=== PATIENT | male | born 2000 | race American Indian/Alaskan Native ===

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

== ENCOUNTER 2022-03-01 00:44 | Inpatient (IN) | payer MEDICAID ==
[2022-03-01] MEDS ORDERED: ZIPRASIDONE MESYLATE 20 MG VIAL IM ONE ×2 (01:10→01:11)
[2022-03-01] MEDS ORDERED: SODIUM CHLORIDE 0.9% 1000 ML 1,000 ML IV ONE ×2 (01:37→02:50)
[2022-03-01 02:05] LABS: Color,Urine Straw (Yellow)
[2022-03-01 02:07] LABS: BUN/Creatinine Ratio 21; Blood Urea Nitrogen 31 mg/dL (9-20); Calcium 9.4 mg/dL (8.4-10.2); Hemolysis Index 5
[2022-03-01 02:11] LABS: Amphetamine Screen,Urine PRESUMPTIVE NEGATIVE; Benzodiazepines Screen,Urine PRESUMPTIVE NEGATIVE; Cannabinoid Screen,Urine PRESUMPTIVE POSITIVE; Cocaine Screen,Urine PRESUMPTIVE NEGATIVE; Methadone Screen,Urine PRESUMPTIVE NEGATIVE; Opiate Screen,Urine PRESUMPTIVE NEGATIVE
[2022-03-01 02:47] LABS: Basophils # (Auto) 0.1 K/mm3 (0.0-0.1); Basophils % (Auto) 1.1 % (0.0-1.8); Eosinophils # (Auto) 0.3 K/mm3 (0.0-0.4); Eosinophils % (Auto) 4.7 % (0.0-4.3); Hematocrit 42.3 % (35.5-45.6); Hemoglobin 13.5 gm/dl (11.8-15.2); Lymphocytes % (Auto) 28.2 % (13.4-35.0); Mean Corpuscular HGB Conc 32 % (32-34); Mean Corpuscular Volume 92 fl (84-94); Monocytes # (Auto) 0.6 K/mm3 (0.0-0.8); Monocytes % (Auto) 8.3 % (0.0-7.3); Platelet Count 346 K/mm3 (140-440); Red Cell Distribution Width 14.5 % (13.2-15.2)
[2022-03-01] MEDS ORDERED: SODIUM POLYSTYRENE 15 GM/60 ML ORAL LIQD PO ONE (02:49)
[2022-03-01] MEDS ORDERED: DEXTROSE 50% IN WATER (25GM) 50 ML SYRINGE IV PRN ×2 (02:50→17:10)
[2022-03-01] MEDS ORDERED: INSULIN REGULAR, HUMAN 100 UNITS in SODIUM CHLORIDE 0.9% 99 ML IV SCH (03:00)
[2022-03-01] MEDS ORDERED: SODIUM POLYSTYRENE 15 GM/60 ML ORAL LIQD PR ONE (03:10)
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
[2022-03-01 03:49] LABS: BUN/Creatinine Ratio 24; Blood Urea Nitrogen 33 mg/dL (9-20); Calcium 8.1 mg/dL (8.4-10.2); Hemolysis Index 11
[2022-03-01] MEDS ORDERED: CALCIUM GLUCONATE 1,000 MG in SODIUM CHLORIDE 0.9% 100 ML IV ONE (03:49)
[2022-03-01] MEDS ORDERED: MAGNESIUM HYDROXIDE (MOM) ORAL LIQD UDC PO PRN (04:08)
[2022-03-01] MEDS ORDERED: MORPHINE 4 MG/1 ML INJ IV PRN (04:08)
[2022-03-01] MEDS ORDERED: IBUPROFEN 600 MG TAB PO PRN (04:08)
[2022-03-01] MEDS ORDERED: MORPHINE 2 MG/1 ML INJ IV PRN (04:08)
[2022-03-01] MEDS ORDERED: ONDANSETRON 4 MG/2 ML INJ IV PRN (04:08)
[2022-03-01] MEDS ORDERED: SODIUM CHLORIDE 0.9% 1000 ML 1,000 ML IV SCH (04:15)
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
[2022-03-01] MEDS ORDERED: D5W/0.45% NACL/KCL 20 MEQ 20 MEQ/1,000 ML BAG IV SCH (05:00)
[2022-03-01] MEDS ORDERED: HEPARIN 5,000 UNIT/1 ML VIAL SUB-Q SCH (06:00)
[2022-03-01] MEDS: SODIUM BICARB 8.4% 50 MEQ/50 ML SYRINGE IV ONE ×2 (06:12→06:54)
[2022-03-01 07:04] LABS: BUN/Creatinine Ratio 22; Blood Urea Nitrogen 31 mg/dL (9-20); Calcium 9.5 mg/dL (8.4-10.2); Hemolysis Index 48
[2022-03-01] MEDS ORDERED: LACTATED RINGERS 2,000 ML IV ONE (08:00)
[2022-03-01 08:20] LABS: BUN/Creatinine Ratio 22; Blood Urea Nitrogen 31 mg/dL (9-20); Calcium 9.5 mg/dL (8.4-10.2); Hemolysis Index 50
[2022-03-01] MEDS ORDERED: D5W/0.45% NACL 1,000 ML IV SCH (09:00)
[2022-03-01] MEDS ORDERED: FAMOTIDINE 20 MG/2 ML INJ IV SCH (10:00)
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
[2022-03-01] MEDS ORDERED: ZIPRASIDONE MESYLATE 20 MG VIAL IM PRN (12:17)
[2022-03-01 13:14] LABS: BUN/Creatinine Ratio 21; Blood Urea Nitrogen 23 mg/dL (9-20); Calcium 9.6 mg/dL (8.4-10.2); Hemolysis Index 3
[2022-03-01 20:34] LABS: BUN/Creatinine Ratio 16; Blood Urea Nitrogen 18 mg/dL (9-20); Hemolysis Index 4
[2022-03-01] MEDS ORDERED: INSULIN GLARGINE 100 UNITS/ML SUB-Q SCH (22:00)
[2022-03-01] MEDS: HEPARIN 5,000 UNIT/1 ML VIAL SUB-Q SCH (22:22)
[2022-03-01] MEDS: INSULIN LISPRO 100 UNIT/ML SUB-Q SCH (22:37)
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
[2022-03-02] MEDS ORDERED: SODIUM CHLORIDE 0.9% 1000 ML 1,000 ML IV ONE (08:00)
[2022-03-02] MEDS: INSULIN LISPRO 100 UNIT/ML SUB-Q SCH ×4 (08:05→22:15)
[2022-03-02] MEDS ORDERED: HUMALOG MIX SQ SCH (10:00)
[2022-03-02] MEDS: INSULIN NPH/REGULAR 70/30 INJ SUB-Q SCH ×3 (10:18→19:17)
[2022-03-02 10:58] LABS: Hemoglobin 12.6 gm/dl (11.8-15.2); Mean Corpuscular HGB Conc 32 % (32-34); Mean Corpuscular Volume 89 fl (84-94); Platelet Count 345 K/mm3 (140-440); Red Blood Count 4.37 M/mm3 (3.65-5.03)
[2022-03-02] MEDS: FAMOTIDINE 20 MG TAB PO SCH (11:08)
[2022-03-02 11:09] LABS: BUN/Creatinine Ratio 12; Blood Urea Nitrogen 13 mg/dL (9-20); Calcium 9.4 mg/dL (8.4-10.2); Hemolysis Index 11
[2022-03-02] MEDS: HEPARIN 5,000 UNIT/1 ML VIAL SUB-Q SCH ×3 (11:21→22:48)
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
[2022-03-02] MEDS ORDERED: SODIUM CHLORIDE 0.9% 1000 ML 1,000 ML ONE (12:32)
--- NOTE | 2022-03-02 13:46 | Progress Note ---
Subjective Date of service: 03/02/22 Objective Vital Signs - 12hr 03/02/22 03/02/22 06:01 11:53 Temperature 97.8 F 99.1 F Pulse Rate 90 89 Respiratory 18 18 Rate Blood Pressure 145/72 138/81 O2 Sat by Pulse 100 98 Oximetry Constitutional: no acute distress, alert Eyes: non-icteric ENT: oropharynx dry Neck: supple, no lymphadenopathy, no JVD Effort: normal Ascultation: Bilateral: clear Cardiovascular: regular rate and rhythm, other (S1,S2) Gastrointestinal: normoactive bowel sounds, soft, non-tender Integumentary: normal, other (Left Uext cole- looks like self-inflicted wounds) Extremities: no cyanosis, pink and warm, pulses normal Neurologic: normal mental status, non-focal exam Psychiatric: mood appropriate CBC and BMP: 03/02/22 10:19 03/02/22 10:19 Abnormal lab findings: Abnormal Labs 03/01/22 03/01/22 03/01/22 01:41 01:41 01:41 [place] % (Auto) Eos % (Auto) Sodium 127 L Potassium 7.6 H* Chloride 94.7 L Carbon Dioxide 20 L BUN 31 H Creatinine 1.5 H Glucose 690 H* POC Glucose Calcium Magnesium Salicylates < 0.3 L Acetaminophen 5.0 L 03/01/22 03/01/22 03/01/22 01:41 03:15 03:49 [place] % (Auto) 8.3 H Eos % (Auto) 4.7 H Sodium 125 L Potassium 8.3 H* Chloride 97.5 L Carbon Dioxide 18 L BUN 33 H Creatinine 1.4 H Glucose 771 H* POC Glucose 599 H Calcium 8.1 L Magnesium Salicylates Acetaminophen 03/01/22 03/01/22 03/01/22 04:43 05:40 05:40 [place] % (Auto) Eos % (Auto) Sodium 136 L D Potassium Chloride Carbon Dioxide 20 L BUN 31 H Creatinine 1.4 H Glucose 339 H POC Glucose 442 H Calcium Magnesium 2.40 H Salicylates Acetaminophen 03/01/22 03/01/22 03/01/22 05:41 06:28 07:13 [place] % (Auto) Eos % (Auto) Sodium Potassium Chloride Carbon Dioxide BUN 31 H Creatinine 1.4 H Glucose 352 H POC Glucose 353 H 253 H Calcium Magnesium Salicylates Acetaminophen 03/01/22 03/01/22 03/01/22 11:11 12:20 12:20 [place] % (Auto) Eos % (Auto) Sodium Potassium 5.3 H Chloride Carbon Dioxide BUN 23 H Creatinine Glucose 244 H POC Glucose 200 H 221 H Calcium Magnesium Salicylates Acetaminophen 03/01/22 03/01/22 03/01/22 13:28 14:44 15:52 [place] % (Auto) Eos % (Auto) Sodium Potassium Chloride Carbon Dioxide BUN Creatinine Glucose POC Glucose 186 H 121 H 106 H Calcium Magnesium Salicylates Acetaminophen 03/01/22 03/01/22 03/02/22 19:59 22:25 07:38 [place] % (Auto) Eos % (Auto) Sodium 133 L Potassium Chloride Carbon Dioxide BUN Creatinine Glucose 279 H POC Glucose 438 H 228 H Calcium Magnesium Salicylates Acetaminophen 03/02/22 10:19 [place] % (Auto) Eos % (Auto) Sodium 131 L Potassium Chloride 96.4 L Carbon Dioxide BUN Creatinine Glucose 258 H POC Glucose Calcium Magnesium Salicylates Acetaminophen
[2022-03-02] MEDS: FLUoxetine 10 MG TAB PO SCH (14:24)
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
[2022-03-03] MEDS: INSULIN NPH/REGULAR 70/30 INJ SUB-Q SCH ×2 (08:00→17:08)
[2022-03-03] MEDS: FLUoxetine 10 MG TAB PO SCH (09:07)
[2022-03-03] MEDS: FAMOTIDINE 20 MG TAB PO SCH (09:07)
[2022-03-03] MEDS: HEPARIN 5,000 UNIT/1 ML VIAL SUB-Q SCH (09:08)
[2022-03-03] MEDS: INSULIN LISPRO 100 UNIT/ML SUB-Q SCH ×3 (09:09→17:04)
--- NOTE | 2022-03-03 11:13 | Progress Note ---
Assessment and Plan Uncontrolled Type 1 Diabetes Mellitus with Hyperglycemia Metabolic Acidosis Acute Kidney Injury(MARIA FERNANDA) most likely Vasomotor Nephropathy Hyperkalemia- improved Acute Toxic Metabolic Acidosis Acute Psychosis Hypertension - discharge planning ongoimng concurrently - complete Psych evaluation - accuchecks with glycemic control per SSI for target blood glucose of < 180 mg/dL; avoid hypoglycemia - prn supplemental oxygen for target O2 sat's > 90% acutely - aspiration precautions - prn bronchodilators with pulmonary hygiene per RT - avoid nephrotoxins, renally dose all medications - AB's per ID rec's - prn analgesia per pain score - Maintenance of sleep-wake cycle, avoid delirium - G.I. & VTE prophylaxis - PT/OT/ROM exercises - continue mobility protocols for pressure ulcer prophylaxis - Monitor hemodynamics closely - continue other care per attending / other consultants - discharge planning ongoing concurrently .... Re-evaluate in am & prn Subjective Date of service: 03/03/22 Principal diagnosis: DM I uncontrolled; MARIA FERNANDA; Met. Acidosis; Hyperkalemia; AMS; AMS; Psychosis Interval history: Patient is seen today for: Uncontrolled Type 1 Diabetes Mellitus; MARIA FERNANDA; Metabolic Acidosis; Hyperkalemia; AMS; Acute Psychosis; Hypertension Seen and examined at bedside; 24hour events reviewed; nursing and respiratory care staff consulted; no adverse overnight events reported to me; resting in bed; doing better overall; tentatively for discharge today; denies N/V/F/C Objective Vital Signs - 12hr 03/03/22 03/03/22 05:16 10:00 Temperature 98.8 F Pulse Rate 81 Respiratory 20 Rate Blood Pressure 134/79 [Right] O2 Sat by Pulse 99 100 Oximetry Constitutional: no acute distress, alert Eyes: non-icteric ENT: oropharynx moist Neck: supple, no lymphadenopathy, no JVD Effort: normal Ascultation: Bilateral: clear Percussion: Bilateral: not dull Cardiovascular: regular rate and rhythm, other (S1,S2) Gastrointestinal: normoactive bowel sounds, soft, non-tender, non-distended Integumentary: normal, other (Left Uext cole- looks like self-inflicted wounds) Extremities: no cyanosis, no edema, pulses normal, no ischemia or petechiae Neurologic: normal mental status, non-focal exam, pupils equal and round, motor strength normal and Psychiatric: mood appropriate, affect normal CBC and BMP: 03/02/22 10:19 03/02/22 10:19 Abnormal lab findings: Abnormal Labs 03/01/22 03/01/22 03/01/22 01:41 01:41 01:41 [place] % (Auto) Eos % (Auto) Sodium 127 L Potassium 7.6 H* Chloride 94.7 L Carbon Dioxide 20 L BUN 31 H Creatinine 1.5 H Glucose 690 H* POC Glucose Calcium Magnesium Salicylates < 0.3 L Acetaminophen 5.0 L 03/01/22 03/01/22 03/01/22 01:41 03:15 03:49 [place] % (Auto) 8.3 H Eos % (Auto) 4.7 H Sodium 125 L Potassium 8.3 H* Chloride 97.5 L Carbon Dioxide 18 L BUN 33 H Creatinine 1.4 H Glucose 771 H* POC Glucose 599 H Calcium 8.1 L Magnesium Salicylates Acetaminophen 03/01/22 03/01/22 03/01/22 04:43 05:40 05:40 [place] % (Auto) Eos % (Auto) Sodium 136 L D Potassium Chloride Carbon Dioxide 20 L BUN 31 H Creatinine 1.4 H Glucose 339 H POC Glucose 442 H Calcium Magnesium 2.40 H Salicylates Acetaminophen 03/01/22 03/01/22 03/01/22 05:41 06:28 07:13 [place] % (Auto) Eos % (Auto) Sodium Potassium Chloride Carbon Dioxide BUN 31 H Creatinine 1.4 H Glucose 352 H POC Glucose 353 H 253 H Calcium Magnesium Salicylates Acetaminophen 03/01/22 03/01/22 03/01/22 11:11 12:20 12:20 [place] % (Auto) Eos % (Auto) Sodium Potassium 5.3 H Chloride Carbon Dioxide BUN 23 H Creatinine Glucose 244 H POC Glucose 200 H 221 H Calcium Magnesium Salicylates Acetaminophen 03/01/22 03/01/22 03/01/22 13:28 14:44 15:52 [place] % (Auto) Eos % (Auto) Sodium Potassium Chloride Carbon Dioxide BUN Creatinine Glucose POC Glucose 186 H 121 H 106 H Calcium Magnesium Salicylates Acetaminophen 03/01/22 03/01/22 03/02/22 19:59 22:25 07:38 [place] % (Auto) Eos % (Auto) Sodium 133 L Potassium Chloride Carbon Dioxide BUN Creatinine Glucose 279 H POC Glucose 438 H 228 H Calcium Magnesium Salicylates Acetaminophen 03/02/22 03/02/22 03/02/22 10:19 11:43 21:16 [place] % (Auto) Eos % (Auto) Sodium 131 L Potassium Chloride 96.4 L Carbon Dioxide BUN Creatinine Glucose 258 H POC Glucose 295 H 110 H Calcium Magnesium Salicylates Acetaminophen 03/03/22 03/03/22 07:33 09:09 [place] % (Auto) Eos % (Auto) Sodium Potassium Chloride Carbon Dioxide BUN Creatinine Glucose POC Glucose 38 L 165 H Calcium Magnesium Salicylates Acetaminophen Allied health notes reviewed: nursing
--- NOTE | 2022-03-03 13:15 | Progress Note ---
Subjective - Reason for Consult Consult date: 03/03/22 Reason for consult: mental health evaluation - Chief Complaint Chief complaint: The patient was seen today. He states feels better. He reports having good conversation with his brothers. He reports no longer feeling angry. He wants to go home to see his dog. He is tolerating the medications well. Denies significant side effects. He denies any current suicidal/homicidal ideation and denies hallucinations. REVIEW OF SYSTEMS Constitutional: Negative for weight loss ENT: Negative for stridor Respiratory: Negative for cough or hemoptysis All other systems reviewed and are negative MENTAL STATUS EXAMINATION General Appearance and Behavior: Age appropriate, good hygiene, wearing appropriate clothes. calm, cooperative Cooperation: Cooperative Psychomotor Behavior: Psychomotor normal Mood: good/calm Affect and affective range: congruent with stated mood Thought Process: Goal directed Thought Content:Reality oriented Speech: Normal tone and pace Suicidal Ideation: Denies Homicidal Ideation: Denies Hallucinations:Denies Delusions: None Impulse Control: normal Insight and Judgment: good Memory: good Attention: attentive Orientation: a/o Assessment (1) Unspecified mood disorder Treatment Plan Continue home medication dc [id number] Prozac 10mg po daily Medical: per primary Sitter: defer to primary Disposition: Do not recommend acute psychiatric inpatient treatment. Line Manager will provide pt with psychiatric outpatient resources and safety plan Will sign off. Thank you. Case staffed with Dr. Martines Medications and Allergies Medications and Allergies Mental Status Exam - Vital signs Last Vital Signs Temp 98.8 F 03/03/22 05:16 Pulse 81 03/03/22 05:16 Resp 20 03/03/22 05:16 BP 134/79 03/03/22 05:16 Pulse Ox 100 03/03/22 10:00
[2022-03-03] MEDS ORDERED: hydrALAZINE 20 MG/1 ML INJ IV ONE (17:16)
[2022-03-03 17:58] LABS: Hematocrit 42.3 % (35.5-45.6); Hemoglobin 13.8 gm/dl (11.8-15.2); Mean Corpuscular HGB Conc 33 % (32-34); Mean Corpuscular Volume 90 fl (84-94); Platelet Count 364 K/mm3 (140-440); Red Cell Distribution Width 14.4 % (13.2-15.2)
[2022-03-03 18:16] LABS: BUN/Creatinine Ratio 10; Blood Urea Nitrogen 10 mg/dL (9-20); Hemolysis Index 29
[2022-03-03 18:41] VITALS: BP 114/62
--- NOTE | 2022-03-04 13:43 | Electrocardiograph Report ---
[facility] Test Date: 2022-03-01 Test Time: 02:54:24 Pat Name: RALPH BEGUM JR Department: Room: A367 Gender: M Spearer: ALVINO : 2000 Requested By: CANDE STEPHENSON Order Number: [id number] Reading MD: Greg Morelos Measurements Intervals [place] Rate: 95 P: 47 [place]: 173 QRS: 94 QRSD: 98 T: 35 QT: 351 QTc: 440 Interpretive Statements Sinus rhythm Right axis deviation Compared to ECG 11/08/2020 06:42:00 No significant change Electronically Signed On 03-04-2022 13:43:19 EDT by Greg Morelos
== END 2022-03-03 19:30 | disposition home or self-care (01) | DRG 637 ==
LOC: ED 00:44 → CC1 04:08 → 3A 19:22
PROVIDERS: ADMIT Internal Medicine Geriatric Medicine; ATTEND Internal Medicine
DX: E10.10 Type 1 diabetes mellitus with ketoacidosis without coma (principal); N17.0 Acute kidney failure with tubular necrosis; F23 Brief psychotic disorder; E87.5 Hyperkalemia; I10 Essential (primary) hypertension; F17.200 Nicotine dependence, unspecified, uncomplicated; F39 Unspecified mood [affective] disorder
CPT/HCPCS: 36415; 80048; 80307; 80320; 81001; 82805; 82962; 83735; 84100; 85025; 85027; 93005; 99285; G0378; J3490; J7070; Q0177; Q9967; G0480; J0360; J0610; J1644; J1815; J3486; J7030; J7120